=== PATIENT | male | born 1950 | race Caucasian/White ===

== ENCOUNTER 2016-12-07 09:52 | Day surgery (SDC) | payer BC ==
--- NOTE | ~2016-12-07 | EGD ---
EGD REPORT [facility] [address] [place] [address] NAME: EULOGIO RICHARDSON : [birth year] STATUS : REG [facility]#: [id number] AGE: 66 ADM/REG DATE : 12/07/16 MR#: [id number] REPORT SERV DATE: 12/07/16 DICTATED BY: NICOLE REILLY DATE: 12/07/16 REPORT STATUS : Draft [facility]ANS[facility]IBED BY: [facility] DATE: 12/07/16 [facility] Center Patient Name: Eulogio Richardson Date of : 1950 Attending MD: NICOLE REILLY MD Procedure Date No Time: 12/07/2016 Procedure: Colonoscopy Indications: Screening for colorectal malignant neoplasm Referring MD: Lance HARRIS MD Medicines: as per anesthesia Complications: No immediate complications. Procedure: Pre-Anesthesia Assessment: - ASA Grade Assessment: I - A normal, healthy patient. After I obtained informed consent, the scope was passed under direct vision. Throughout the procedure, the patient's blood pressure, pulse, and oxygen saturations were monitored continuously. The PCF [id number] was introduced through the anus and advanced to the cecum, identified by appendiceal orifice and ileocecal valve. The colonoscopy was performed without difficulty. The patient tolerated the procedure. The quality of the bowel preparation was fair. Findings: The perianal and digital rectal examinations were normal. A sessile polyp was found in the transverse colon. The polyp was 4 mm in size. The polyp was removed with a cold biopsy forceps. Resection and retrieval were complete. A sessile polyp was found in the cecum. The polyp was 3 mm in size. The polyp was removed with a cold biopsy forceps. Resection and retrieval were complete. A sessile polyp was found in the ascending colon. The polyp was 4 mm in size. The polyp was removed with a cold biopsy forceps. Resection and retrieval were complete. Internal hemorrhoids were found during endoscopy and were mild. Impression: - One 4 mm polyp in the transverse colon. Resected and retrieved. - One 3 mm polyp in the cecum. Resected and retrieved. - One 4 mm polyp in the ascending colon. Resected and retrieved. - Internal hemorrhoids. Recommendation: - Await pathology results. - Repeat colonoscopy for surveillance based on pathology EGD REPORT [address] [address] NAME: EULOGIO RICHARDSON : [birth year] STATUS : REG [facility]#: [id number] AGE: 66 ADM/REG DATE : 12/07/16 MR#: [id number] REPORT SERV DATE: 12/07/16 DICTATED BY: NICOLE REILLY DATE: 12/07/16 REPORT STATUS : Draft TRANSCRIBED BY: [employer] DATE: 12/07/16 results. Procedure Code(s): --- Professional --- 38449, Colonoscopy, flexible, proximal to splenic flexure; with biopsy, single or multiple Diagnosis Code(s): --- Professional --- D12.2, Benign neoplasm of ascending colon D12.0, Benign neoplasm of cecum D12.3, Benign neoplasm of transverse colon K64.8, Other hemorrhoids Z12.11, Encounter for screening for malignant neoplasm of colon CPT copyright 2013 [employer]. All rights reserved. The codes documented in this report are preliminary and upon operations intern review may be revised to meet current compliance requirements. NICOLE REILLY MD 12/07/2016 12:34 PM This report has been signed electronically. Number of Addenda: 0 Note Initiated On: 12/07/2016 11:50 AM Scope Withdrawal Time 0 hours 12 minutes 3 seconds [id number] [place] [id number]
[~2016-12-07 09:52] MED LIST: DULCOLAX STOOL SOFTE PO; FISH OIL1200 MG PO; MOTRIN IB200 MG PO; VITAMIN D400 UNI1 PO; Vitamin E PO; [UNRECOGNIZED DRUG - OTHER] PO
== END 2016-12-07 23:59 | disposition home or self-care (01) ==
LOC: DMU 09:52
PROVIDERS: Internal Medicine Gastroenterology
PROC: 0DBK8ZZ Excision of Ascending Colon, Via Natural or Artificial Opening Endoscopic (ICD-10-PCS; 2016-12-07)
PROC: 0DBH8ZZ Excision of Cecum, Via Natural or Artificial Opening Endoscopic (ICD-10-PCS; 2016-12-07)
PROC: 0DBL8ZZ Excision of Transverse Colon, Via Natural or Artificial Opening Endoscopic (ICD-10-PCS; principal; 2016-12-07 11:00)
DX: Z12.11 Encounter for screening for malignant neoplasm of colon (principal); K63.5 Polyp of colon; D12.2 Benign neoplasm of ascending colon; D12.0 Benign neoplasm of cecum; K64.8 Other hemorrhoids; Z86.010 Personal history of colon polyps; Z98.890 Other specified postprocedural states; Z87.442 Personal history of urinary calculi
CPT/HCPCS: 88305